=== PATIENT | female | born 1970 | race Caucasian/White ===

== ENCOUNTER → 2022-03-12 | Outpatient (CLI) | payer BC ==
--- NOTE | 2022-03-12 17:23 | Diagnostic Imaging Report ---
PROCEDURE: CT head and neck without contrast. TECHNIQUE: Contiguous axial images were obtained from the skull base through the vertex. Noncontrast axial images were then obtained of the soft tissue of the neck. Auto Exposure Controls were utilized during the CT exam to meet ALARA standards for radiation dose reduction. INDICATION: Swelling and lump in the submandibular region, midline to left side. COMPARISON: None. FINDINGS: CT HEAD: No intracranial hemorrhage, mass effect, hydrocephalus or extra-axial fluid collection. No CT evidence of a territorial infarction. Osseous structures are intact. Visualized paranasal sinuses and mastoids are clear. The orbits are unremarkable on this noncontrast exam. CT NECK: Enlarged bilateral level 1A and 1B cervical lymph nodes. The largest of these is a left 1A (submental) lymph node measuring up to 1.3 x 2.5 cm. There are also diffusely prominent lymph nodes throughout the remaining neck. However, the only lymph node measuring up to 1.0 cm in short axis dimension is at the confluence of the right internal jugular and subclavian veins. The floor the mouth, tongue base, epiglottis and retropharyngeal space appear negative on this noncontrast exam. No large mass or asymmetry is seen in the pharynx or larynx. Prominent thyroid gland. The submandibular and parotid glands are grossly negative. No radiopaque sialoliths. Mild to moderate spondylotic changes in the cervical spine. No acute osseous finding. Paranasal sinuses and mastoids are clear. The lung apices are clear. IMPRESSION: 1. No acute intracranial CT finding. 2. Bilateral level 1A and 1B cervical lymphadenopathy including a markedly enlarged submental lymph node measuring up to 1.3 x 2.5 cm. Findings could be infectious/inflammatory versus neoplastic. The large left level 1A submental lymph node should be readily amenable to percutaneous biopsy. 3. There are otherwise diffusely prominent bilateral cervical lymph nodes with the only other lymph node measuring up to 1.0 cm in short axis dimension located at the junction of the right internal jugular and subclavian veins. Dictated by: Dictated on workstation # [id number]
== END ==
LOC: RAD 14:28
PROVIDERS: ATTEND Surgery
DX: R59.1 Generalized enlarged lymph nodes (principal)
CPT/HCPCS: 70450; 70490

== ENCOUNTER → 2022-03-26 | Day surgery (SDC) | payer BC ==
[~2022-03-26] VITALS: Ht 165.1 cm; Wt 68.2 kg
[~2022-03-26] MED LIST: LIDOCAINE 1% INJ 30 ML (XYLOCAINE) VIAL INJ ONE
--- NOTE | 2022-03-26 12:38 | Diagnostic Imaging Report ---
INDICATION: Submental lymphadenopathy. Patient presents for ultrasound-guided biopsy. FINDINGS: The patient was brought to the procedure room and placed on table in the supine position. Ultrasound imaging of the submental portion of the neck was performed to evaluate for an appropriate entry site. The neck was then prepped and draped in the usual sterile fashion. A small amount of 1% lidocaine was utilized for local anesthesia. Four passes were made into the dominant lymph node in the midline submental location of the neck utilizing an 18-gauge Temno core biopsy needle. Core biopsies were obtained. The needle was removed and hemostasis was obtained. The patient tolerated the procedure well and left the Department in stable condition. IMPRESSION: Successful ultrasound-guided core biopsy of the dominant lymph node in the midline submental location of the neck. Pathology results are currently pending. Dictated by: Dictated on workstation # [id number]
== END ==
LOC: RAD 10:29
PROVIDERS: ATTEND Surgery
DX: C82.11 Follicular lymphoma grade II, lymph nodes of head, face, and neck (principal); C85.11 Unspecified B-cell lymphoma, lymph nodes of head, face, and neck
CPT/HCPCS: 76942

== ENCOUNTER → 2022-04-08 | Outpatient (RCR) | payer BC ==
[2022-04-08 12:21] LABS: BASOPHILS % (AUTO) 0 % (0-10); EOSINOPHILS # (AUTO) 0.2 10^3/uL (0.0-0.3); EOSINOPHILS % (AUTO) 3 % (0-10); HEMATOCRIT 41 % (35-52); HEMOGLOBIN 13.7 g/dL (11.5-16.0); LYMPHOCYTES # (AUTO) 0.8 10^3/uL (1.0-4.0); LYMPHOCYTES % (AUTO) 15 % (12-44); MEAN CORPUSCULAR HEMOGLOBIN 30 pg (25-34); MEAN CORPUSCULAR HGB CONC 34 g/dL (32-36); MEAN CORPUSCULAR VOLUME 89 fL (80-99); MEAN PLATELET VOLUME 9.9 fL (9.0-12.2); MONOCYTES # (AUTO) 0.6 10^3/uL (0.0-1.0); MONOCYTES % (AUTO) 10 % (0-12); NEUTROPHILS % (AUTO) 72 % (42-75); PLATELET COUNT 224 10^3/uL (130-400); WHITE BLOOD COUNT 5.6 10^3/uL (4.3-11.0)
[2022-04-08 12:36] LABS: BILIRUBIN,TOTAL 0.4 MG/DL (0.1-1.0); CALCIUM 9.1 MG/DL (8.5-10.1); CREATININE SERUM 0.85 MG/DL (0.60-1.30); TOTAL PROTEIN 6.9 GM/DL (6.4-8.2)
[2022-04-08 22:20] LABS: HEPATITIS C ANTIBODY C Non-Reactive (Non-Reactive)
== END ==
LOC: ONC 10:36
PROVIDERS: ATTEND Internal Medicine Hematology & Oncology
DX: C82.90 Follicular lymphoma, unspecified, unspecified site (principal)
CPT/HCPCS: 80053; 80074; 83615; 85025

== ENCOUNTER → 2022-04-17 | Outpatient (CLI) | payer BC ==
[~2022-04-17] MED LIST changes: +CATHETER FLUSH 10 ML SYR IVP PRN; -LIDOCAINE 1% INJ 30 ML (XYLOCAINE) VIAL INJ ONE
--- NOTE | 2022-04-17 17:22 | Diagnostic Imaging Report ---
PET/CT INDICATION: Initial staging follicular lymphoma. TECHNIQUE: PET/CT imaging was obtained from the base of the skull through the pelvis after the administration of 9.91 mCi of F-18 fluorodeoxyglucose injected into the left antecubital fossa. Limited CT imaging was utilized for localization and attenuation correction purposes. The low energy CT utilized for attenuation correction is not considered to be of high enough spatial resolution to allow in and of itself a separate anatomical analysis. The blood glucose was 79 mg/dL. There are no prior PET/CT times available for comparison. The CT head and neck exam performed on 03/12/2022 did note bilateral level 1a and 1b cervical lymphadenopathy including a 1.3 x 2.5 cm enlarged submental node on the left. That node is identified on this study and the note is hypermetabolic with a maximum SUV of 7.1. There are also other smaller hypermetabolic nodes on each side of the neck. These have maximum SUV values in the 5.0-5.7 range. Two contiguous nodes are also seen just anterior to the hyoid bone on the left. These have SUV values of approximately 8-9. In addition, there is a highly intense 1 x 1.5 cm node along the posterior aspect of the right parotid gland. This has a maximum SUV of 14.6. The images through the thorax show slightly increased hypermetabolic activity in the subcarinal region. The maximum SUV in this area is 4.8. These nodes are suspicious for malignancy, as well. There is also slightly increased activity in the nodes along the inframammary chains and exam bilaterally. The maximum SUV in these nodes however is only 2.5. The abdomen and pelvis do show multiple hypermetabolic masses throughout the mesentery of the left upper quadrant in the mid abdomen. Many of these nodes are in the 2-3 cm range and several measure up to 4 to 5 cm in size. These masses have hypermetabolic activity ranging in the 8-9 range. There is also a roughly 2 cm hypermetabolic node in the periaortic region on the left. This has a maximum SUV of 7.0. Just inferior to this along the anterior aspect of the right kidney there are 2 contiguous 2 cm hypermetabolic nodes. These have a maximum SUV of 6.7. There are a few other smaller periaortic nodes. These do not appear to be particularly hyperintense. There is also somewhat of an unusual elongate area of hypermetabolic activity along the anterior aspect of the left lobe of the liver. This has a maximum SUV of 5.7. This too is most likely neoplastic in nature. There is no hypermetabolic activity within the pelvis to suggest neoplastic disease. However, there is a hypermetabolic node in the left inguinal region with a maximum SUV of 3.4. There is no other hypermetabolic activity to suggest the presence of malignancy. The CT images failed to show any sign of an acute abnormality. There is diverticulosis sigmoid colon. The uterus also appears to be enlarged. IMPRESSION: 1. There are multiple hypermetabolic nodes in the neck, chest and abdomen and in the left inguinal region. This includes multiple large hypermetabolic mesenteric masses in the left upper quadrant and the mid abdomen. These finding should be considered neoplastic until proven otherwise. 2. There is no other hypermetabolic activity to suggest the presence of malignancy. 3. There is no sign of an acute abnormality. Dictated by: Dictated on workstation # [id number]
== END ==
LOC: RAD 08:15
PROVIDERS: ATTEND Internal Medicine Hematology & Oncology
DX: C82.80 Other types of follicular lymphoma, unspecified site (principal); R19.02 Left upper quadrant abdominal swelling, mass and lump; R19.09 Other intra-abdominal and pelvic swelling, mass and lump
CPT/HCPCS: 78815; A9552

== ENCOUNTER 2022-04-22 09:48 | Outpatient (RCR) | payer BC | END 2022-05-09 | disposition home or self-care (01) | LOC: ONC 09:48 | PROVIDERS: ATTEND Internal Medicine Hematology & Oncology | DX: Z53.9 Procedure and treatment not carried out, unspecified reason (principal) ==

== ENCOUNTER → 2022-06-30 | Outpatient (CLI) | payer BC ==
[~2022-06-30] MED LIST changes: -CATHETER FLUSH 10 ML SYR IVP PRN; +HOLD METFORMIN - RECEIVED CONTRAST 20 ML VIAL IV SCH; +IOHEXOL 350 MG/ML 100 ML (OMNIPAQUE 350) VIAL IV ONE; +NS 100 ML (IVPB) BAG IV ONE
--- NOTE | 2022-06-30 12:36 | Diagnostic Imaging Report ---
INDICATION: Lymphoma. Patient had a noncontrasted neck CT for comparison 03/12/2022, exam also correlated with metabolic CT fusion PET 04/17/2022. Post IV contrast-enhanced CT neck, chest, abdomen and pelvis performed with multiplanar reconstructions. NECK: A right-sided level 2 node posterior to the right mandibular ramus today 1.7 x 1.2 cm, on metabolic PET CT it was 1.5 x 1.1 cm and was hypermetabolic. Posterior inferior to that node, mass measuring 1.2 x 1.0 cm is not significantly changed in size and was previously hypermetabolic. Submandibular nodes bilaterally were previously hypermetabolic and on the left today measured 1.8 x 1.5 cm, previously 1.6 x 1.4 cm and on the right measuring short axis 9 mm unchanged. Left paramedian aggregation of submental nodes anatomically unchanged from prior and more hypermetabolic on previous PET with the anterior ben conglomerate measuring 1.7 x 1.6 cm unchanged. Nasopharynx, oropharynx and hypopharynx unremarkable. Some lobular mucous membrane thickening in the maxillary sinus and few ethmoid air cells, chronic. No air-fluid level. No bony destruction. Prevertebral and retropharyngeal spaces normal. The thyroid unremarkable. There is no airway embarrassment. Bony structures of the neck stable and unremarkable. Overall no substantial changes occurred. CHEST: Subcarinal and paraesophageal mediastinal nodes previously hypermetabolic, largest subcarinal lesion has a AP short axis thickness 12 mm today, previously 17 mm. Mild nodular thickening of the bilateral lower internal mammary chains were previously hypermetabolic and have decreased with AP short axis thickness of the larger left-sided measuring 6 mm today, previously 8 mm. Small predominantly fatty lymph nodes in the bilateral axilla with thin cortices are unchanged. These were mildly hypermetabolic on prior PET. Hypermetabolic and pericardial nodularity of the midline today measures in AP thickness of 12 mm and is unchanged. Few shotty subcentimeter superior mediastinal lymph nodes unchanged previously moderately active. No lung mass. No pneumonia or edema. No pleural or pericardial effusion. No suspicious bony lesion. ABDOMEN AND PELVIS: Central mesentery and left upper quadrant mesenteric soft tissue masses were previously hypermetabolic. At the level of the lower pole of the left kidney, two dominant left-sided lesions are present anteriorly and posteriorly with the more anterior measuring 5 cm x 3 cm, previously 4.3 x 3.2 cm, the more posterior 5.1 x 3.9 cm, previously 4.8 x 3.7 cm. Multiple additional midline and right paramedian somewhat smaller masses that are clearly pathologic and are not significantly changed. No enlarged or suspicious pelvic adenopathy. The inguinal canals unremarkable. Pelvic sidewalls unremarkable. There is no ascites. There is no bowel, biliary or urinary tract obstruction. No retroperitoneal adenopathy. Spleen nonfocal and unremarkable in size. Some lymph nodes in the naomie hepatis and gastrohepatic ligament previously hypermetabolic but unchanged. Pancreas unremarkable. The adrenals are negative. There is no biliary pathology. The unobstructed kidneys normal. No suspicious bony lesion. IMPRESSION: 1. While some of the nodules in the neck, chest and abdomen showed increase, other showed decrease and overall I do not feel there is a substantial anatomic change when correlated with findings on metabolic PET CT 04/17/2022 with features consistent with cervical thoracic and most notably abdominal involvement by lymphoma. 2. No findings of osseous or visceral involvement. No ascites or thoracic effusion. Dictated by: Dictated on workstation # [id number]
== END ==
LOC: RAD 09:00
PROVIDERS: ATTEND Internal Medicine Hematology & Oncology
DX: C82.90 Follicular lymphoma, unspecified, unspecified site (principal)
CPT/HCPCS: 70491; 71260; 74176

== ENCOUNTER 2022-07-15 09:12 | Outpatient (RCR) | payer BC ==
[2022-07-15 09:34] LABS: BASOPHILS % (AUTO) 1 % (0-10); EOSINOPHILS # (AUTO) 0.3 10^3/uL (0.0-0.3); EOSINOPHILS % (AUTO) 6 % (0-10); HEMATOCRIT 45 % (35-52); HEMOGLOBIN 14.7 g/dL (11.5-16.0); LYMPHOCYTES # (AUTO) 0.9 10^3/uL (1.0-4.0); LYMPHOCYTES % (AUTO) 19 % (12-44); MEAN CORPUSCULAR HEMOGLOBIN 29 pg (25-34); MEAN CORPUSCULAR HGB CONC 33 g/dL (32-36); MEAN CORPUSCULAR VOLUME 89 fL (80-99); MEAN PLATELET VOLUME 9.8 fL (9.0-12.2); MONOCYTES # (AUTO) 0.6 10^3/uL (0.0-1.0); MONOCYTES % (AUTO) 11 % (0-12); NEUTROPHILS # (AUTO) 3.1 10^3/uL (1.8-7.8); NEUTROPHILS % (AUTO) 63 % (42-75); PLATELET COUNT 202 10^3/uL (130-400)
[2022-07-15 09:54] LABS: ALBUMIN 4.2 GM/DL (3.2-4.5); BILIRUBIN,TOTAL 0.6 MG/DL (0.1-1.0); CALCIUM 8.9 MG/DL (8.5-10.1); CREATININE SERUM 0.76 MG/DL (0.60-1.30); POTASSIUM 4.8 MMOL/L (3.6-5.0); TOTAL PROTEIN 6.9 GM/DL (6.4-8.2)
== END 2022-08-08 | disposition home or self-care (01) ==
LOC: ONC 09:12
PROVIDERS: ATTEND Internal Medicine Hematology & Oncology
DX: C82.90 Follicular lymphoma, unspecified, unspecified site (principal)
CPT/HCPCS: 36415; 80053; 83615; 85025

== ENCOUNTER → 2023-01-08 | Outpatient (CLI) | payer BC ==
[~2023-01-08] MED LIST changes: +CATHETER FLUSH 10 ML SYR IV PRN
--- NOTE | 2023-01-08 11:33 | Diagnostic Imaging Report ---
EXAMINATION: CT chest, abdomen and pelvis with intravenous contrast. TECHNIQUE: Multiple contiguous axial images were obtained through the chest, abdomen and pelvis after the uneventful administration of intravenous contrast. All CT scans use one or more of the following dose optimizing techniques: automated exposure control, MA and/or KvP adjustment based on patient size and exam type or iterative reconstruction. HISTORY: Follicular lymphoma. COMPARISON: 06/30/2022 FINDINGS: Thyroid: The visualized thyroid gland is normal. Mediastinum: Heart size is normal without significant pericardial effusion. The aorta is normal in caliber. There are multiple prominent mediastinal and axillary lymph nodes present. A business services sales representative left axillary lymph node has minimally increased in size from prior exam measuring 1.5 x 0.9 cm (previously 1.5 x 0.7 cm). The mediastinal lymph nodes appear to be similar in size and appearance from prior exam. A left AP window node measures 1.6 x 1.0 cm (previously 1.8 x 0.9 cm). Lungs and airways: The lungs are clear without consolidation, pleural effusion, or pneumothorax. There is no suspicious pulmonary lesion. The airways are normal. Solid organs: The liver is normal without focal lesion. The gallbladder is normal. There is no biliary ductal dilation. Pancreas is normal. Spleen is normal. Adrenal glands are normal. The kidneys are normal without hydronephrosis. Bowel: There is a small hiatal hernia present. There is no bowel obstruction. Moderate amount of stool is seen within the colon. The appendix is normal. Peritoneum: There is no intraperitoneal free fluid or free air. There are numerous enlarged mesenteric and retroperitoneal lymph nodes present. A business services sales representative left anterior mesenteric lymph node measures 5.2 x 3.7 cm (previously 5.2 x 3.3 cm). A left periaortic retroperitoneal lymph node measures 5.1 x 2.7 cm (previously 3.7 x 2.0 cm). Vasculature: Normal without aneurysm. Musculoskeletal: Degenerative changes of the spine without suspicious osseous lesion or compression fracture. Pelvis: The uterus and adnexa are normal. The urinary bladder is normal. IMPRESSION: 1. Stable to mildly increased size of the diffuse lymphadenopathy involving the axilla, mediastinum, mesentery, and retroperitoneum compared to 06/30/2022. Dictated by: Dictated on workstation # [id number]
== END ==
LOC: RAD 09:30
PROVIDERS: ATTEND Internal Medicine Hematology & Oncology
DX: C82.80 Other types of follicular lymphoma, unspecified site (principal)
CPT/HCPCS: 71260; 74177